=== PATIENT | female | born 1985 | race Caucasian/White ===

== ENCOUNTER 2017-01-05 10:08 | Inpatient (IN) ==
[2017-01-05] MEDS ORDERED: Famotidine 20 MG/2 ML VIAL IVP PRN (10:39)
[2017-01-05] MEDS ORDERED: *HR* Nalbuphine 20 MG/ML AMPUL IVP PRN (10:39)
[2017-01-05] MEDS ORDERED: Naloxone 0.4 MG/ML INJ IVP PRN (10:39)
[2017-01-05] MEDS ORDERED: Metoclopramide 10 MG/2 ML VIAL IVP PRN (10:42)
[2017-01-05] MEDS ORDERED: Ondansetron 4 MG/2 ML VIAL IVP PRN (10:42)
[2017-01-05] MEDS ORDERED: miSOPROStol 25 MCG TABLET PO PRN (10:42)
[2017-01-05] MEDS ORDERED: Oxytocin 20 units/ LR 1000 mL 20 UNIT/1,000 ML BAG IVC SCH (10:45)
[2017-01-05 11:27] LABS: Basophils % 0.3 %; Eosinophils # 0.1 K/mcL (0.0-0.6); Eosinophils % 0.4 %; Hematocrit 37.1 % (35.3-44.9); Hemoglobin 12.4 g/dL (11.5-15.4); Immature Granulocytes % 1.5 % (0-4); Immature Platelets 4.9 % (1.1-6.1); Lymphocytes # 1.9 K/mcL (0.6-4.6); Lymphocytes % 14.7 %; Mean Corpuscular HGB Conc 33.4 g/dL (31.6-35.5); Mean Corpuscular Hemoglobin 29.5 pg (28.0-33.3); Mean Corpuscular Volume 88.1 fL (83.0-100.0); Mean Platelet Volume 10.6 fL (9.4-12.4); Monocytes # 0.5 K/mcL (0.0-1.3); Platelet Count 239 K/mcL (140-400); Red Blood Count 4.21 M/mcL (3.82-4.97); Red Cell Distribution Width 13.9 % (11.5-14.5); Segmented Neutrophils % 79.1 %
[2017-01-05 11:35] LABS: Amphetamine Screen,Urine Negative ng/mL (Cutoff=1000); Barbiturate Screen,Urine Negative ng/mL (Cutoff=200); Benzodiazepines Screen,Urine Negative ng/mL (Cutoff=200); Cannabinoid Screen,Urine Negative ng/mL (Cutoff = 50); Cocaine Screen,Urine Negative ng/mL (Cutoff= 300); Opiate Screen,Urine Negative ng/mL (Cutoff=300); Phencyclidine Screen,Urine Negative ng/mL (Cutoff=25)
[2017-01-05] MEDS: Ringers Solution, Lactated 1,000 ML IVC SCH ×2 (11:37→12:16)
[2017-01-05] MEDS ORDERED: Penicillin G Potassium 5,000,000 UNIT in D5% in Water 100 ML IVPB ONE (12:00)
--- NOTE | 2017-01-05 12:59 | OB/GYN History & Physical ---
Date of Encounter: 01/05/17 Time of Encounter: 12:57 Assessment and Plan (1) 37 weeks gestation of Current visit: Yes Status: Acute Patient admitted for Delivery (2) Group B streptococcal carriage complicating Current visit: Yes Status: Acute PCN per protocol (3) Asymmetrical growth retardation Current visit: Yes Status: Acute induction of labor (4) Chronic hypertension during , antepartum Current visit: Yes Status: Acute monitor BPs PIH labs Continue Labetalol History of Present Illness Chief complaint: IOL for Chronic HTN and asymetical growth HPI: Ms. Pittman is a 31 year old female at 37w1d presents to labor and delivery for induction of labor for chronic HTN and asymmetrical growth. Patient was discussed between Dr. Meléndez, Dr. Coronado and Dr. Boyce and delivery was recommended. Patient reports +FM and denies contractions, LOF or VBk. Blood type : O+, Rubella: Immune, Hep. B: nonreactive, GBS: Positive. Will give cytotec 50mcg PO and start PCN per protocol for GBS. Past Med Surg Social Fam HX - Past Medical History Source: patient Medical history: hypertension Psychiatric history: no psych history - Past Surgical History Surgical History: no surgical history - Social History Smoking Status: Never smoker Smokeless Tobacco Status: No Alcohol use: none Drug use: none Current living situation: Home - Independent Recent Out of Country Travel Within the Last 8 Weeks: No Exposure or Possible Exposure to Illness During Travel: No - Family History Mother Adopted: No Living Status: Still Living Hx Family Cardiac Disorders: Yes (htn) Obstetrical History - Pregnancies : 2 Para: 0 Term: 0 : 0 Ab's: 0 Livin Medications and Allergies Ferrous Sulfate [Iron] 325 mg PO DAILY 01/05/17 [History] Folic Acid 1 mg PO DAILY 01/05/17 [History] Labetalol [Trandate] 200 mg PO BID 01/05/17 [History] Omeprazole [PriLOSEC] 1 tab PO DAILY 01/05/17 [History] Vit Calc,Iron,Folic [ Vitamins] 1 tab PO DAILY 01/05/17 [ History] Vitamin C 1 tab PO DAILY 01/05/17 [History] 3 Allergy/AdvReac Type Severity Reaction Status Date / Time No Known Allergies Allergy Verified 01/05/17 11:48 Review of System OB - Constitutional Constitutional ROS IM: no fever(s), no headache(s) - Cardiovascular Cardiovascular: no chest pain, no palpitations, no syncope - Respiratory Respiratory: no cough, no dyspnea - Gastrointestinal Gastrointestinal: no abdominal pain, no cramping, no diarrhea, no heartburn, no nausea, no vomiting - Genitourinary Genitourinary: no abnormal vaginal bleeding, no dysuria, no flank pain, no urinary urgency, no vaginal discharge, no vaginal odor, no vaginal pruritis Exam - Constitutional Constitutional: well developed, well nourished, no acute distress, average body habitus - HEENT HEENT: Normocephaly, Mucus Membranes Moist - Neck Neck exam: full ROM, supple - Lungs Respiratory exam: CTAB - Cardiovascular Cardiovascular exam: RRR, +S1, +S2 - Abdomen Abdomen: Present: bowel sounds normal, gravid, non tender - Extremities Extremities exam: full ROM, normal capillary refill Deep Tendon Reflex Grade: 2+ Normal - Vagina Vagina: Present: normal moisture - Uterus Uterus exam: Present: normal size, normal contour - Anus/Rectum Anus/Rectum: Present: normal perianal skin (FHR 135 bpm moderate variability + 15x15 accels no decels noted. Contractions 3-4 min apart. CAt. 1 tracing. ) Results Result Diagrams: 01/05/17 11:00 Abnormal lab results WBC 12.7 K/mcL (4.3-11.1) H 01/05/17 11:00 Neutrophils # 10.0 K/mcL (1.6-8.9) H 01/05/17 11:00 All other labs normal.
[2017-01-05 13:07] LABS: Alanine Aminotransferase 16 Units/L (0-55); Aspartate Amino Transferase 14 Units/L (5-34); BUN/Creatinine Ratio 16 (6-26); Blood Urea Nitrogen 10 mg/dL (7-20); Lactate Dehydrogenase 166 Units/L (159-327); Uric Acid 4.7 mg/dL (2.6-6.0); eGFR For African Americans > 60 (> 60); eGFR For Non-African Americans > 60 (> 60)
--- NOTE | 2017-01-05 15:55 | OB Labor Progress Note ---
Date of Encounter: 01/05/17 Time of Encounter: 15:51 Labor Progress Note - Subjective Subjective: Patient resting in bed. Patient denies any pain. Discussed POC with patient. Patient denies any questions or concerns. - Cervix Cervix: 2/70/-1 - Heart Tones Heart Tones: 135 bpm moderate amount of variability no decels noted. - Chamisal Chamisal: 3-4 min apart - Interventions Interventions: SVE, discussed POC - Plan Plan: Continue labor management
[2017-01-05] MEDS: Penicillin G Potassium 2,500,000 UNIT in D5% in Water 100 ML IVPB SCH ×2 (15:56→22:20)
--- NOTE | 2017-01-05 16:00 | Anesthesia Evaluation PreOp ---
Date of Encounter: 01/05/17 Time of Encounter: 15:57 - Past History Planned Operation: DIANN Cardiac History: HTN Pulmonary History: Denies Any Significant HX FERRY PILOT History: Denies Any Significant HX Other Medical History: GERD Anesthesia History: No Prior Anesthetic Complications, Past Anesthesia (egd) : Yes Test: Positive Alcohol Use: none Drug use: none Medications and Allergies Ferrous Sulfate [Iron] 325 mg PO DAILY 01/05/17 [History] Folic Acid 1 mg PO DAILY 01/05/17 [History] Labetalol [Trandate] 200 mg PO BID 01/05/17 [History] Omeprazole [PriLOSEC] 1 tab PO DAILY 01/05/17 [History] Vit Calc,Iron,Folic [ Vitamins] 1 tab PO DAILY 01/05/17 [ History] Vitamin C 1 tab PO DAILY 01/05/17 [History] 3 Allergy/AdvReac Type Severity Reaction Status Date / Time No Known Allergies Allergy Verified 01/05/17 11:48 - Meds/Allergy Pre-op Review Medications Reviewed: Yes Allergies Reviewed: Yes Beta Blockers on Current Med List: Yes If Beta Blockers taken, Date/Time (Last Dose taken): 01/05 0800 Anesthesia Results - Labs 01/05/17 11:00 01/05/17 11:00 Anesthesia Exam 128/96 76 16 fht 136 Height: 5'8" Weight: 106 NPO (# of Hours): 7 Pain Scale: 2 Pain Scale Used: Numeric (1 - 10) - HEENT Pupil (Motor): Pupils equal Mallampati: II Teeth: Normal Denture Type: Upper: Partial Oral Opening: Greater than 3 - FERRY PILOT LOC: Oriented FERRY PILOT Motor: Normal RUE, Normal LUE, Normal RLE, Normal LLE, Normal Face FERRY PILOT Sensory: Normal: RUE, LUE, RLE, LLE, Face - Cardiac Rhythm: Regular Murmur: None - Pulmonary Breath Sounds: bilateral Clear Respiratory Effort: Symmetrical Anesthesia Assess/Plan ASA Score: 2 Modified [place] Scale for Level of Consciousness: Cooperative, oriented, and tranquil Anesthetic Plan: MAC Autologous Blood: No Monitoring Plan: Standard Monitors Recovery Plan: Other (risks discussed, questions answered, consented)
--- NOTE | 2017-01-05 19:16 | OB Labor Progress Note ---
Date of Encounter: 01/05/17 Time of Encounter: 19:15 Labor Progress Note - Subjective Subjective: Pt c/o cramps - Cervix Cervix: 2+/80/-2 - Interventions Interventions: Delvalle cath placed without difficulty. - Plan Plan: Expect .
--- NOTE | 2017-01-05 20:58 | OB Labor Progress Note ---
Date of Encounter: 01/05/17 Time of Encounter: 20:57 Labor Progress Note - Subjective Subjective: Pt doing well - Cervix Cervix: /-2 - Heart Tones Heart Tones: RNST - Interventions Interventions: AROM clear
[2017-01-06] MEDS ORDERED: *HR* Ropivacaine/PF 0.2% 10 ML AMPUL EP ONE (01:35)
[2017-01-06] MEDS ORDERED: *HR* FentaNYL (PF) 100 MCG/2 ML VIAL EP ONE (01:35)
[2017-01-06] MEDS ORDERED: *HR* FentaNYL (PF) 100 MCG/2 ML VIAL ONE (01:37)
[2017-01-06] MEDS ORDERED: *HR* Ropivacaine/PF 0.2% 10 ML AMPUL ONE (01:38)
[2017-01-06] MEDS ORDERED: Epidural Premix (fent/bupiv) 110 ML EP ONE ×2 (01:38→08:38)
[2017-01-06] MEDS ORDERED: Epidural Premix (fent/bupiv) 110 ML EP SCH (01:45)
--- NOTE | 2017-01-06 02:05 | Anesthesia Procedures ---
Date of Encounter: 01/06/17 Time of Encounter: 02:03 Procedures: Anesthesia - Epidural/Spinal Patient ID/Chart reviewed: Yes Patient examined: Yes OB Eval: Gestational age: 37.1 OB Eval: : 2 OB Eval: Hx Para: 0 OB Eval: Dilated at (cm): 5 OB Eval: Contractions: Non-stressed pattern Consent Obtained: Yes Supplemental Oxygen: None/Room Air Site Prep: Aseptic Technique, Sterile prep and drape, 0.5% Chlorhexidine/Alcohol Patient position: upright Local Anesthetic: Lidocaine 1% Amount of Local Anesthetic used: 3 Touhy Needle Gauge: 18 Touhy Needle Depth (cm): 9 Catheter Depth at Skin (cm): 18 Test Dose (1.5% Lido + Epi): Volume given (mls): 3 Test Dose Result: Negative Loading Dose: Fentanyl (mcg): 100 Loading Dose: Other: ropivicaine 0.2% 10cc Loading Dose Administered: Thru Touhy Needle Infusion Med: 0.125% Bupivacaine w/ 2 mcg/ml Fentanyl Infusion Rate (mls/hr): [address]: Tegaderm Interspace Used: L2-L3 Loss of Resistance (TAISHA): Yes Blood: No CSF: No Paresthesia: No Procedure: aseptic, tolerated well, effective Vitals + FHT's: 120/56 76 fht 153
[2017-01-06] MEDS: Penicillin G Potassium 2,500,000 UNIT in D5% in Water 100 ML IVPB SCH ×3 (02:33→10:39)
[2017-01-06] MEDS ORDERED: 0.9 % Sodium Chloride 1,000 ML ONE (08:44)
--- NOTE | 2017-01-06 08:59 | OB Labor Progress Note ---
Date of Encounter: 01/06/17 Time of Encounter: 08:57 Labor Progress Note - Subjective Subjective: Pt reports she is doing well with no specific concerns - Cervix Cervix: 7/100/0 at 0743 per RN - Heart Tones Heart Tones: Baseline 130's with variability and intermittent variables - Category II - [place]: Q 2-4 mins - Interventions Interventions: O2, position changes Will start Amnioinfusion - Plan Plan: Start Amnioinfusion and monitor closely
--- NOTE | 2017-01-06 10:45 | OB Labor Progress Note ---
Date of Encounter: 01/06/17 Time of Encounter: 10:43 Labor Progress Note - Subjective Subjective: Pt doing well with no complaints - Cervix Cervix: 9-10/100/+1 per RN - Heart Tones Heart Tones: Baseline 130's with variability and recurrent variables - category II - [place]: Q 2-3 minutes - Interventions Interventions: Continue O2 as needed, positional changes, IV fluids - Plan Plan: Continue amnioinfusion and expectant management
--- NOTE | 2017-01-06 12:44 | OB/GYN Procedure Note ---
Delivery - Delivery Date: 01/06/17 Provider: Fabiola Maurer Intrapartum events: other(please specify) (chronic hypertension and asymmetrical growth) Delivery induction: AROM, oxytocin, courtney, misoprostol Delivery augmentation: rupture of membranes, pitocin Delivery monitor: external FHT, external uterine Anesthesia: epidural Estimated Blood Loss: 250 (mL) - (s) A Delivery Date: 01/06/17 Infant Delivery Time: 12:05 Presentation: vertex Position: LOUISE Route of delivery: Gender: Female Viability: Viable Pounds: 4 Ounces: 13 Weight Gram: 2.2 kg at 1 minute: 8 at 5 mins: 9 Shoulder Dystocia: not encountered Specimens collected: cord blood Placenta: spontaneous (Bimanual exam performed to remove small amount membrane, lochia normal) Cord: 3 umbilical vessels - Repair Episiotomy: none Laceration Description: Perineal - 1st Degree - Complications Delivery complications: none Delivery comments: Pt pushed effectively to for viable female "[place]" weighing 4lbs 13oz with apgars 8 at one minute and 9 at five minutes. After pulsations ceased the cord was clamped and cut and the placenta delivered spontaneously. Some moderate gushes of lochia were noted and bimanual exam revealed some membrane in the cervix that was digitally removed without difficulty. A first degree perineal laceration was repaired with 3-0 Vicryl. EBL 250ml. Mother and baby stable in kangaroo care following procedure. - Disposition Mom disposition: stable in LDR disposition: stable in LDR
[2017-01-06] MEDS ORDERED: Acetaminophen 325 MG TABLET PO PRN (14:12)
[2017-01-06] MEDS ORDERED: Oxytocin 20 units/ LR 1000 mL 20 UNIT/1,000 ML BAG IVC SCH (14:12)
[2017-01-06] MEDS ORDERED: Measles/Mumps/Rubella Vacc 0.5 ML VIAL SQ PRN (14:12)
[2017-01-06] MEDS: Ibuprofen 600 MG TABLET PO PRN (21:02)
[2017-01-07 08:07] VITALS: BP 130/86
[2017-01-07] MEDS: Ibuprofen 600 MG TABLET PO PRN (08:21)
[2017-01-07] MEDS ORDERED: Prenatal Vit/FA 1 EACH TABLET PO SCH (09:00)
--- NOTE | 2017-01-07 09:04 | Discharge Summary ---
Date of Encounter: 01/07/17 Time of Encounter: 09:01 - Discharge Diagnosis (1) 37 weeks gestation of Priority: Primary Status: Acute Comments: . (2) Vaginal delivery Priority: Primary Status: Acute Comments: delivered at 37 1/7 EGA via on PPD #1. IOL due to chronic HTN and asymmetrical growth. Meeting all post- milestones with no complaints. Pain well managed on po pain medication. (3) Group B streptococcal carriage complicating Priority: Secondary Status: Acute (4) Chronic hypertension during , antepartum Priority: Secondary Status: Acute Comments: BP controlled during hospitalization. PIH labs normal. Continue labetalol upon discharge. (5) Asymmetrical growth retardation Priority: Secondary Status: Acute Comments: Baby girl weighing 4# 13oz. Doing well and - Discharge Medications Prescriptions: Ibuprofen [Motrin] 600 mg PO Q6HR PRN #120 tablet PRN Reason: Cramping Docusate [Colace] 100 mg PO BID PRN #60 capsule PRN Reason: Constipation Ferrous Sulfate [Iron] 325 mg PO DAILY #30 tablet Home Medications: Folic Acid 1 mg PO DAILY 01/05/17 [History] Labetalol [Trandate] 200 mg PO BID 01/05/17 [History] Omeprazole [PriLOSEC] 1 tab PO DAILY 01/05/17 [History] Vit Calc,Iron,Folic [ Vitamins] 1 tab PO DAILY 01/05/17 [ History] Vitamin C 1 tab PO DAILY 01/05/17 [History] Docusate [Colace] 100 mg PO BID PRN #60 capsule 01/07/17 [Rx] Ferrous Sulfate [Iron] 325 mg PO DAILY #30 tablet 01/07/17 [Rx] Ibuprofen [Motrin] 600 mg PO Q6HR PRN #120 tablet 01/07/17 [Rx] Allergies/Adverse Reactions: 3 Allergy/AdvReac Type Severity Reaction Status Date / Time No Known Allergies Allergy Verified 01/05/17 11:48 Data Procedures and tests throughout hospitalization: Laboratory Tests 01/05/17 01/05/17 01/05/17 11:00 11:00 11:00 WBC 12.7 H RBC 4.21 Hgb 12.4 Hct 37.1 MCV 88.1 MCH 29.5 MCHC 33.4 RDW 13.9 Plt Count 239 MPV 10.6 Immature Gran % 1.5 Seg Neutrophils % 79.1 Lymphocytes % 14.7 Monocytes % 4.0 Eosinophils % 0.4 Basophils % 0.3 Neutrophils # 10.0 H Lymphocytes # 1.9 Monocytes # 0.5 Eosinophils # 0.1 Basophils # 0.0 Immature Plt Fraction 4.9 BUN 10 Creatinine 0.62 Est GFR ( Amer) > 60 Est GFR (Non-Af Amer) > 60 BUN/Creatinine Ratio 16 Uric Acid 4.7 AST 14 ALT 16 Lactate Dehydrogenase 166 Urine Opiates Screen Negative Ur Barbiturates Screen Negative Ur Phencyclidine Scrn Negative Ur Amphetamines Screen Negative U Benzodiazepines Scrn Negative Urine Cocaine Screen Negative U Marijuana (THC) Screen Negative Date of admission: 01/05/17 10:08 Primary care physician: Sierra Watkins CNP Consults: 01/06/17 14:12 Consult to Trust Clerk [CONS] Routine Comment: Vaginal delivery, consult needed Discharging clinician: Jaziel Zapata Anticipated date of discharge: 01/07/17 - Patient Status Disposition: Home, Self-Care Condition: Good Functional capacity at discharge: independent ambulation Overall status at discharge: patient is progressing back to baseline - Discharge Instructions Follow Up With: Sierra Watkins CNP [Primary Care Provider] - Additional Instructions: Take your medications as prescribed Continue Labetalol 200mg twice daily Breastfeed every 2-3 hours Follow-up with your OB in 2 weeks for BP check Follow-up with your OB in 6 weeks for check-up - Diet and Activity Activity: increase activity as tolerated Diet: advance to your usual diet Hospital Course Reason for admission: induction of labor Delivery: Episiotomy: none Laceration: 1st degree Other procedures: none complications: none Discharge diagnosis: IUP at term delivered [place] baby: female Hospital course: - Delivery Date: 01/06/17 Provider: Fabiola Maurer Intrapartum events: other(please specify) (chronic hypertension and asymmetrical growth) Delivery induction: AROM, oxytocin, courtney, misoprostol Delivery augmentation: rupture of membranes, pitocin Delivery monitor: external FHT, external uterine Anesthesia: epidural Estimated Blood Loss: 250 (mL) - (s) A Infant Delivery Date: 01/06/17 Infant Delivery Time: 12:05 Presentation: vertex Position: LOUISE Route of delivery: Gender: Female Viability: Viable Pounds: 4 Ounces: 13 Weight Gram: 2.2 kg at 1 minute: 8 at 5 mins: 9 Shoulder Dystocia: not encountered Specimens collected: cord blood Placenta: spontaneous (Bimanual exam performed to remove small amount membrane, lochia normal) Cord: 3 umbilical vessels - Repair Episiotomy: none Laceration Description: Perineal - 1st Degree - Complications Delivery complications: none Delivery comments: Pt pushed effectively to [facility] for viable female "[place]" weighing 4lbs 13oz with apgars 8 at one minute and 9 at five minutes. After pulsations ceased the cord was clamped and cut and the placenta delivered spontaneously. Some moderate gushes of lochia were noted and bimanual exam revealed some membrane in the cervix that was digitally removed without difficulty. A first degree perineal laceration was repaired with 3-0 Vicryl. EBL 250ml. Mother and baby stable in kangaroo care following procedure. Stable in PP and appropriate for discharge. Time Attestation: Total time spent providing and/or coordinating discharge services: Time Spent: Less than 30 minutes Exam - Constitutional Vitals: Temp Pulse Resp BP Pulse Ox 97.6 F 93 16 130/86 98 01/07/17 07:50 01/07/17 07:50 01/07/17 08:27 01/07/17 07:50 01/07/17 07:50 General appearance IM: A&O X 3, no acute distress - Respiratory Respiratory exam: Present: CTAB - Cardiovascular Cardiovascular exam IM: Present: RRR, +S1, +S2 - GI/Abdominal GI/Abdominal exam IM: normal bowel sounds - Uterine Tone: Firm Uterus Position: 1 Finger Below Umbilicus - Extremities Exam Extremities exam IM: Present: normal capillary refill, pedal edema (mild bilaterally) - Neurological Exam Neurological exam: alert, no focal deficits - Psychiatric Additional comments: Reports mood is "good"
== END 2017-01-07 14:15 | disposition home or self-care (01) | DRG 774 ==
LOC: 1NENULAB 10:08 → 1NENUOBS 01-06 15:05
PROVIDERS: ADMIT Obstetrics & Gynecology; ATTEND Obstetrics & Gynecology